=== PATIENT | male | born 1980 | race Hispanic/Latino ===

== ENCOUNTER 2020-12-30 10:34 | Inpatient (IN) | payer BC ==
[~2020-12-30] VITALS: Ht 165.1 cm; Wt 68.7 kg
[2020-12-30] MEDS ORDERED: METHYLPREDNISOLONE SOD SUCC 125 MG/2ML VIAL IV STA (10:55)
[2020-12-30] MEDS ORDERED: SODIUM CHLORIDE 0.9% 1000ML 1,000 ML IV STA ×2 (10:55→12:10)
[2020-12-30] MEDS ORDERED: ALBUTEROL/IPRATROPIUM 3 ML NEB NEB ONE (11:00)
[2020-12-30 11:28] LABS: BASOPHILS # (AUTO) 0.1 (0.0-0.1); BASOPHILS % 0.6 % (0.0-1.0); EOSINOPHILS # (AUTO) 4.1 (0.0-0.4); EOSINOPHILS % 26.9 % (0.0-6.0); HEMOGLOBIN 16.3 g/dL (14.0-18.0); LYMPHOCYTES # (AUTO) 1.5 (1.0-3.2); LYMPHOCYTES % 9.5 % (18.0-39.1); MEAN CORPUSCULAR HEMOGLOBIN 31.1 pg (28-32); MEAN CORPUSCULAR HGB CONC 35.4 g/dL (31-35); MEAN CORPUSCULAR VOLUME 87.8 fL (81-99); MONOCYTES # (AUTO) 0.8 (0.2-0.8); MONOCYTES % 5.3 % (4.4-11.3); NEUTROPHILS # (AUTO) 8.8 (2.1-6.9); NEUTROPHILS % 57.3 % (38.7-80.0); PLATELET COUNT 306 x10e3/uL (140-360); RED BLOOD COUNT 5.24 x10e6/uL (4.3-5.7); RED CELL DISTRIBUTION WIDTH 12.8 % (11.7-14.4)
[2020-12-30 11:57] LABS: INR 0.96; PARTIAL THROMBOPLASTIN TIME 28.1 seconds (23.8-35.5); PROTHROMBIN TIME 13.6 seconds (11.9-14.5)
[2020-12-30 11:58] LABS: B-TYPE NATRIURETIC PEPTIDE2 < 5.0 pg/mL (0-100)
[2020-12-30 12:08] LABS: ALBUMIN 3.9 g/dL (3.5-5.0); ALBUMIN/GLOBULIN RATIO 0.9 (0.8-2.0); ANION GAP 15.9 mmol/L (8-16); CALCIUM 9.7 mg/dL (8.4-10.2); CREATININE, SERUM 0.92 mg/dL (0.72-1.25); POTASSIUM 3.9 mmol/L (3.5-5.1)
[2020-12-30] MEDS: CEFTRIAXONE 2 GM in SODIUM CHLORIDE 0.9% 100 ML IV SCH (12:17)
[2020-12-30 12:33] LABS: CREATINE KINASE MB 0.9 ng/mL (0-5.0)
[2020-12-30] MEDS: SODIUM CHLORIDE 0.9% 1000ML 1,000 ML IV SCH ×2 (15:00→21:40)
[2020-12-30] MEDS ORDERED: ACETAMINOPHEN 325 MG TAB PO PRN (15:45)
[2020-12-30 16:30] VITALS: BP 122/83
[2020-12-30] MEDS: IPRATROPIUM BROMIDE 0.02% 2.5 ML NEB NEB SCH ×2 (16:30→19:25)
[2020-12-30] MEDS: ALBUTEROL SULF 0.083% NEB SOLN 3 ML NEB NEB SCH ×2 (16:30→19:25)
[2020-12-30] MEDS: FAMOTIDINE 20 MG TAB PO SCH (17:41)
[2020-12-30] MEDS: GUAIFENESIN 600MG/DEXTROMETHORPHAN 30MG TABSR PO SCH (17:41)
[2020-12-30 18:11] VITALS: BP 122/83
[2020-12-30] MEDS ORDERED: MONTELUKAST SOD10 MG PO (18:39)
[2020-12-30] MEDS ORDERED: LEVOFLOXACIN250 MG PO (18:39)
[2020-12-30] MEDS ORDERED: ZITHROMAX500 MG PO (18:39)
[2020-12-30] MEDS ORDERED: CETIRIZINE HCL10 MG PO (18:39)
[2020-12-30 19:25] VITALS: BP 121/88
[2020-12-30] MEDS: ENOXAPARIN 30 MG/0.3 ML SYR SC SCH (20:49)
[2020-12-30 21:00] VITALS: BP 121/88
[2020-12-31] VITALS (7 sets, daily range): BP systolic 114–134; BP diastolic 73–88
[2020-12-31] MEDS: ALBUTEROL SULF 0.083% NEB SOLN 3 ML NEB NEB SCH ×7 (02:40→22:30)
[2020-12-31] MEDS ORDERED: IOPAMIDOL 370 MG/ML 200 ML INFUS..BTL INJ ONE (03:23)
[2020-12-31] MEDS ORDERED: SODIUM CHLORIDE 0.9% 50ML 50 ML ONE (03:23)
[2020-12-31] MEDS: SODIUM CHLORIDE 0.9% 1000ML 1,000 ML IV SCH ×2 (05:51→11:28)
[2020-12-31 05:58] LABS: BASOPHILS % 0.3 % (0.0-1.0); EOSINOPHILS # (AUTO) 0.9 (0.0-0.4); EOSINOPHILS % 7.4 % (0.0-6.0); HEMATOCRIT 35.5 % (38.2-49.6); HEMOGLOBIN 12.6 g/dL (14.0-18.0); LYMPHOCYTES % 8.4 % (18.0-39.1); MEAN CORPUSCULAR HGB CONC 35.5 g/dL (31-35); MEAN CORPUSCULAR VOLUME 87.2 fL (81-99); MONOCYTES # (AUTO) 1.1 (0.2-0.8); MONOCYTES % 9.2 % (4.4-11.3); NEUTROPHILS # (AUTO) 8.7 (2.1-6.9); NEUTROPHILS % 74.3 % (38.7-80.0); PLATELET COUNT 248 x10e3/uL (140-360); RED BLOOD COUNT 4.07 x10e6/uL (4.3-5.7); RED CELL DISTRIBUTION WIDTH 12.9 % (11.7-14.4)
[2020-12-31 06:33] LABS: ALBUMIN 2.7 g/dL (3.5-5.0); ALBUMIN/GLOBULIN RATIO 0.8 (0.8-2.0); ANION GAP 10.8 mmol/L (8-16); CREATININE, SERUM 0.7 mg/dL (0.72-1.25); POTASSIUM 3.8 mmol/L (3.5-5.1)
[2020-12-31] MEDS: IPRATROPIUM BROMIDE 0.02% 2.5 ML NEB NEB SCH ×4 (07:00→18:15)
[2020-12-31 07:17] LABS: CHOL/HDL RATIO 3.3 (3.9-4.7); MAGNESIUM 1.9 MG/DL (1.3-2.1)
[2020-12-31 07:37] LABS: THYROID STIMULATING HORMONE 0.231 uIU/mL (0.350-4.940)
[2020-12-31] MEDS: CEFTRIAXONE 2 GM in SODIUM CHLORIDE 0.9% 100 ML IV SCH (07:55)
[2020-12-31] MEDS: GUAIFENESIN 600MG/DEXTROMETHORPHAN 30MG TABSR PO SCH ×2 (07:55→16:41)
[2020-12-31] MEDS: FAMOTIDINE 20 MG TAB PO SCH ×2 (07:55→16:41)
[2020-12-31] MEDS: ENOXAPARIN 30 MG/0.3 ML SYR SC SCH ×2 (07:55→21:15)
[2020-12-31] MEDS ORDERED: LACTATED RINGER'S 1,000 ML INJ ONE (13:00)
[2020-12-31] MEDS: BUDESONIDE/FORMOTEROL 160/4.5MCG INHALER INH SCH (19:00)
[2020-12-31] MEDS: BENZONATATE 100 MG CAP PO PRN (21:34)
[2020-12-31] MEDS: GUAIFENESIN 600MG/DEXTROMETHORPHAN 30MG TABSR PO PRN (22:23)
[2021-01-01] VITALS (8 sets, daily range): BP systolic 114–126; BP diastolic 79–90
[2021-01-01] MEDS: IPRATROPIUM BROMIDE 0.02% 2.5 ML NEB NEB SCH ×4 (02:20→18:00)
[2021-01-01] MEDS: ALBUTEROL SULF 0.083% NEB SOLN 3 ML NEB NEB SCH ×6 (02:20→22:20)
[2021-01-01] MEDS: GUAIFENESIN 600MG/DEXTROMETHORPHAN 30MG TABSR PO PRN ×4 (03:00→21:14)
[2021-01-01] MEDS: BENZONATATE 100 MG CAP PO PRN ×2 (03:45→17:59)
[2021-01-01] MEDS ORDERED: GUAIFENESIN 600MG/DEXTROMETHORPHAN 30MG TABSR PO SCH (06:00)
[2021-01-01 06:35] LABS: BASOPHILS # (AUTO) 0.1 (0.0-0.1); BASOPHILS % 0.4 % (0.0-1.0); EOSINOPHILS # (AUTO) 4.3 (0.0-0.4); EOSINOPHILS % 30.7 % (0.0-6.0); HEMATOCRIT 37.6 % (38.2-49.6); HEMOGLOBIN 13.6 g/dL (14.0-18.0); LYMPHOCYTES # (AUTO) 1.7 (1.0-3.2); LYMPHOCYTES % 12.1 % (18.0-39.1); MEAN CORPUSCULAR HEMOGLOBIN 31.4 pg (28-32); MEAN CORPUSCULAR HGB CONC 36.2 g/dL (31-35); MEAN CORPUSCULAR VOLUME 86.8 fL (81-99); MONOCYTES # (AUTO) 0.7 (0.2-0.8); MONOCYTES % 4.7 % (4.4-11.3); NEUTROPHILS # (AUTO) 7.2 (2.1-6.9); NEUTROPHILS % 51.7 % (38.7-80.0); PLATELET COUNT 270 x10e3/uL (140-360); RED BLOOD COUNT 4.33 x10e6/uL (4.3-5.7); RED CELL DISTRIBUTION WIDTH 12.8 % (11.7-14.4)
[2021-01-01 07:13] LABS: ANION GAP 12.7 mmol/L (8-16); CALCIUM 8.6 mg/dL (8.4-10.2); CREATININE, SERUM 0.72 mg/dL (0.72-1.25); MAGNESIUM 1.9 MG/DL (1.3-2.1); POTASSIUM 3.7 mmol/L (3.5-5.1)
[2021-01-01] MEDS: BUDESONIDE/FORMOTEROL 160/4.5MCG INHALER INH SCH ×2 (07:30→18:22)
[2021-01-01] MEDS: MONTELUKAST SODIUM 10 MG TAB PO SCH (08:32)
[2021-01-01] MEDS: FAMOTIDINE 20 MG TAB PO SCH ×2 (08:32→15:55)
[2021-01-01] MEDS: ENOXAPARIN 30 MG/0.3 ML SYR SC SCH ×2 (08:33→21:12)
[2021-01-02] VITALS (7 sets, daily range): BP systolic 112–131; BP diastolic 59–93
[2021-01-02] MEDS: IPRATROPIUM BROMIDE 0.02% 2.5 ML NEB NEB SCH ×3 (02:00→14:32)
[2021-01-02] MEDS: ALBUTEROL SULF 0.083% NEB SOLN 3 ML NEB NEB SCH ×4 (02:00→14:32)
[2021-01-02] MEDS: BENZONATATE 100 MG CAP PO PRN ×2 (05:00→14:23)
[2021-01-02 06:26] LABS: BASOPHILS % 0.3 % (0.0-1.0); EOSINOPHILS # (AUTO) 5.5 (0.0-0.4); EOSINOPHILS % 39.4 % (0.0-6.0); HEMATOCRIT 38.3 % (38.2-49.6); HEMOGLOBIN 13.8 g/dL (14.0-18.0); LYMPHOCYTES # (AUTO) 1.8 (1.0-3.2); LYMPHOCYTES % 12.7 % (18.0-39.1); MEAN CORPUSCULAR VOLUME 86.1 fL (81-99); MONOCYTES # (AUTO) 0.6 (0.2-0.8); MONOCYTES % 4.4 % (4.4-11.3); NEUTROPHILS % 42.7 % (38.7-80.0); PLATELET COUNT 294 x10e3/uL (140-360); RED BLOOD COUNT 4.45 x10e6/uL (4.3-5.7); RED CELL DISTRIBUTION WIDTH 12.7 % (11.7-14.4)
[2021-01-02] MEDS: BUDESONIDE/FORMOTEROL 160/4.5MCG INHALER INH SCH (06:41)
[2021-01-02 06:47] LABS: ANION GAP 12.5 mmol/L (8-16); CALCIUM 9.2 mg/dL (8.4-10.2); CREATININE, SERUM 0.74 mg/dL (0.72-1.25); POTASSIUM 3.5 mmol/L (3.5-5.1)
[2021-01-02 07:10] LABS: BILIRUBIN,DIRECT 0.5 mg/dL (0.0-0.5)
[2021-01-02] MEDS: ENOXAPARIN 30 MG/0.3 ML SYR SC SCH (08:00)
[2021-01-02] MEDS: FAMOTIDINE 20 MG TAB PO SCH (08:02)
[2021-01-02] MEDS: MONTELUKAST SODIUM 10 MG TAB PO SCH (08:02)
[2021-01-02] MEDS ORDERED: CEFUROXIME250 MG PO (10:20)
[2021-01-02] MEDS ORDERED: ZITHROMAX500 MG PO (10:20)
[2021-01-02] MEDS ORDERED: ALBUTEROL2.5 MG/3 M NEB (10:23)
[2021-01-02] MEDS ORDERED: TESSALON PERLE100 MG PO (10:23)
[2021-01-02] MEDS ORDERED: MUCINEX DM ER1 EACH PO (10:23)
[2021-01-02] MEDS ORDERED: SYMBICORT 80-10.2 GM INH (10:24)
[2021-01-02] MEDS ORDERED: VENTOLIN HFA18 GM INH (10:42)
== END 2021-01-02 16:00 | disposition home or self-care (01) | DRG 871 ==
LOC: ER 10:44 → ERHOLD 13:36 → MED/SURG3 15:22
PROVIDERS: ADMIT Internal Medicine; ATTEND Internal Medicine
DX: A41.9 Sepsis, unspecified organism (principal); J18.9 Pneumonia, unspecified organism; J96.01 Acute respiratory failure with hypoxia; J45.41 Moderate persistent asthma with (acute) exacerbation; R65.20 Severe sepsis without septic shock; R79.89 Other specified abnormal findings of blood chemistry; Z87.891 Personal history of nicotine dependence; R19.7 Diarrhea, unspecified
CPT/HCPCS: 36415; 71045; 71260; 80048; 80053; 80061; 80076; 82550; 82553; 83036; 83605; 83735; 83880; 84100; 84443; 84484; 85025; 85610; 85730; 87040; 93005; 94664; 94799; 99284; J0456; J0696; J1650; J2930; J7030; J7050; Q9967; U0002

== ENCOUNTER 2021-08-01 10:00 | Emergency (ER) | payer BC ==
[~2021-08-01] VITALS: Ht 165.1 cm; Wt 68.5 kg
[~2021-08-01 10:00] MED LIST: ALBUTEROL2.5 MG/3 M NEB; CEFUROXIME250 MG PO; CETIRIZINE HCL10 MG PO; LEVOFLOXACIN250 MG PO; MONTELUKAST SOD10 MG PO; MUCINEX DM ER1 EACH PO; SYMBICORT 80-10.2 GM INH; TESSALON PERLE100 MG PO; VENTOLIN HFA18 GM INH; ZITHROMAX500 MG PO
[2021-08-01] MEDS ORDERED: ALBUTEROL/IPRATROPIUM 3 ML NEB NEB ONE ×3 (10:15)
[2021-08-01] MEDS ORDERED: METHYLPREDNISOLONE SOD SUCC 125 MG/2ML VIAL IV ONE (10:15)
[2021-08-01] MEDS ORDERED: SODIUM CHLORIDE 0.9% 1000ML 1,000 ML IV SCH (10:15)
[2021-08-01 10:27] LABS: BASOPHILS # (AUTO) 0.1 (0.0-0.1); BASOPHILS % 0.6 % (0.0-1.0); EOSINOPHILS # (AUTO) 1.2 (0.0-0.4); EOSINOPHILS % 11.4 % (0.0-6.0); HEMATOCRIT 42.3 % (38.2-49.6); HEMOGLOBIN 15.1 g/dL (14.0-18.0); LYMPHOCYTES # (AUTO) 2.3 (1.0-3.2); MEAN CORPUSCULAR HEMOGLOBIN 31.6 pg (28-32); MEAN CORPUSCULAR HGB CONC 35.7 g/dL (31-35); MEAN CORPUSCULAR VOLUME 88.5 fL (81-99); MONOCYTES # (AUTO) 0.7 (0.2-0.8); MONOCYTES % 6.1 % (4.4-11.3); NEUTROPHILS # (AUTO) 6.5 (2.1-6.9); NEUTROPHILS % 60.4 % (38.7-80.0); PLATELET COUNT 231 x10e3/uL (140-360); RED BLOOD COUNT 4.78 x10e6/uL (4.3-5.7); RED CELL DISTRIBUTION WIDTH 13.8 % (11.7-14.4)
[2021-08-01 10:41] LABS: ALANINE AMINOTRANSFERASE 24 IU/L (0-55); ALBUMIN 3.7 g/dL (3.5-5.0); ALBUMIN/GLOBULIN RATIO 1.1 (0.8-2.0); ALKALINE PHOSPHATASE 71 IU/L (40-150); ANION GAP 16.6 mmol/L (8-16); BLOOD UREA NITROGEN 10 mg/dL (7-26); BUN/CREATININE RATIO 12 (6-25); CALCIUM 9.2 mg/dL (8.4-10.2); CARBON DIOXIDE 23 mmol/L (22-29); CHLORIDE 108 mmol/L (98-107); CREATINE KINASE 37 IU/L (30-200); CREATININE, SERUM 0.83 mg/dL (0.72-1.25); GLUCOSE 89 mg/dL (74-118); POTASSIUM 3.6 mmol/L (3.5-5.1); SODIUM 144 mmol/L (136-145)
[2021-08-01] MEDS ORDERED: ALBUTEROL2.5 MG/0.5 INH (13:02)
[2021-08-01] MEDS ORDERED: PROAIR HFA INH8.5 GM INH (13:02)
[2021-08-01] MEDS ORDERED: PREDNISONE20 MG PO (13:02)
== END 2021-08-01 13:35 | disposition home or self-care (01) ==
LOC: ER 10:20
DX: J45.901 Unspecified asthma with (acute) exacerbation (principal); Z88.1 Allergy status to other antibiotic agents; Z91.012 Allergy to eggs; Z91.010 Allergy to peanuts; Z20.822 Contact with and (suspected) exposure to COVID-19; Z79.899 Other long term (current) drug therapy
CPT/HCPCS: 36415; 71045; 80053; 82550; 82553; 84484; 85025; 93005; 94640; 94799; 99284; J2930; J7030; U0002

== ENCOUNTER 2023-11-19 21:23 | Emergency (ER) | payer BC ==
[~2023-11-19] VITALS: Ht 165.1 cm; Wt 72.6 kg
[~2023-11-19 21:23] MED LIST changes: +ALBUTEROL2.5 MG/0.5 INH; +PREDNISONE20 MG PO; +PROAIR HFA INH8.5 GM INH
[2023-11-19 21:48] VITALS: PULSE 116; RESP 18; TEMP 100.4
[2023-11-19 22:30] LABS: INFLUENZAE A&B ANTIGEN (RAPID) NEGATIVE (NEGATIVE)
[2023-11-19 22:32] LABS: RESPIRATORY SYNC. VIRUS POSITIVE (NEGATIVE)
[2023-11-19 22:52] VITALS: PULSE 123; RESP 20; O2SAT 96
[2023-11-19] MEDS: ACETAMINOPHEN 325 MG TAB PO ONE (22:54)
[2023-11-19] MEDS: ALBUTEROL/IPRATROPIUM 3 ML NEB NEB ONE (22:55)
[2023-11-19] MEDS ORDERED: BENZONATATE200 MG PO (23:05)
[2023-11-19] MEDS ORDERED: MEDROL4 M2 PO (23:05)
[2023-11-19] MEDS ORDERED: ALBUTEROL1.25 MG/3 NEB (23:16)
[2023-11-20 00:07] VITALS: BP 142/95; PULSE 117; RESP 22; TEMP 99.9; O2SAT 98
== END 2023-11-19 23:22 | disposition home or self-care (01) ==
LOC: ER 21:51
DX: R06.02 Shortness of breath (principal); B97.4 Respiratory syncytial virus as the cause of diseases classified elsewhere; R05.9 Cough, unspecified; R51.9 Headache, unspecified; Z11.52 Encounter for screening for COVID-19
CPT/HCPCS: 71045; 87400; 87420; 94640; 94799; 99284; U0002